=== PATIENT | female | born 1995 | race Two or more races ===

== ENCOUNTER → 2024-01-05 | Day surgery (SDC) | payer MEDICAID ==
[2024-01-03 14:43] LABS: Basophils # (auto) 0 10 ^3/uL (0-0.2); Basophils % (auto) 0.3 % (0.0-2.0); Eosinophils # (auto) 0.1 10 ^3/uL (0-0.8); Eosinophils % (auto) 0.9 % (0.0-7.0); Hematocrit 37.8 % (36.0-46.0); Hemoglobin 12.3 g/dL (12.2-16.2); Lymphocytes # (auto) 1.3 10 ^3/uL (0.4-5.4); Lymphocytes % (auto) 22.7 % (10.0-50.0); Mean Corpuscular Hemoglobin 27.9 pg (28.0-32.0); Mean Corpuscular Hgb Conc. 32.5 g/dL (32.0-36.0); Mean Corpuscular Volume 85.9 fL (80.0-100.0); Monocytes # (auto) 0.3 10 ^3/uL (0-1.3); Monocytes % (auto) 5.5 % (0.0-12.0); Neutrophils % (auto) 70.6 % (37.0-80.0); Nucleated Red Blood Cells % 0.1 %; Red Cell Distribution Width 13.9 % (11.8-14.3); White Blood Cell 5.7 10^3/uL (4.4-10.8)
[2024-01-03 14:58] LABS: Urine Bacteria FEW /hpf (None Seen); Urine Blood Negative /uL (Negative); Urine Clarity Turbid (Clear); Urine Color Yellow (Yellow); Urine Mucus FEW (None Seen); Urine Protein, UAD Negative (Negative); Urine Specific Gravity 1.017 (1.001-1.035); Urine Urobilinogen Normal (Negative); Urine WBC 6 /hpf (0 - 5); Urine pH 6.5 (5.0-9.0)
[2024-01-03 15:12] LABS: Alanine Aminotransferase 11 U/L (7-40); Albumin 4.2 g/dL (3.2-4.8); Alkaline Phosphatase 62 U/L (46-116); Anion Gap 5 (5-15); Aspartate Aminotransferase 8 U/L (13-40); Bilirubin, Total 0.7 mg/dL (0.2-1.0); Calcium 9.2 mg/dL (8.7-10.4); Carbon Dioxide 26 mmol/L (20-30); Chloride 107 mmol/L (98-107); Glucose 240 mg/dL (74-106); Potassium 4.6 mmol/L (3.5-5.1); Sodium 138 mmol/L (136-145); Total Protein 6.9 g/dL (5.7-8.2)
[2024-01-03 15:14] LABS: BUN/Creatinine Ratio 7.5 (10.0-20.0); Blood Urea Nitrogen < 5 mg/dL (9-23)
[2024-01-03 15:22] LABS: INR 1.04 (0.9-1.15); Partial Thromboplastin Time 27.8 SEC (24.5-34.5)
[~2024-01-05] VITALS: Ht 167.6 cm; Wt 74.8 kg
[~2024-01-05] MED LIST: CABE0.5T PO; CLON-1003 PO; DESV1TAB15 PO; DIVA250T12 PO; FAMO20TA10 PO; KETAMINE 50mg/ML 1ml syringe ONE; LAMO100T44 PO; LEVO150T10 PO; MIDAZOLAM HCL 2MG/2ML 2ml VIAL (1mg/ml) ONE; ONDA-155 PO; ONDANSETRON HCL 4 MG/2 ML VIAL ONE; PROPOFOL 10 MG/ML 20 ML IV ONE; SODIUM CHLORIDE LOCK 10 ML ONE; VENL1TAB99 PO; fentaNYL CITRATE 100 MCG/2 ML VL ONE
[2024-01-05 08:46] VITALS: PULSE 98; RESP 7; TEMP 98.9; O2SAT 100
[2024-01-05 09:15] VITALS: BP 114/66; PULSE 82; RESP 11; O2SAT 98
== END | disposition home or self-care (01) ==
LOC: GI 06:55
PROVIDERS: ATTEND Internal Medicine Gastroenterology
DX: R11.2 Nausea with vomiting, unspecified (principal); K29.80 Duodenitis without bleeding; K29.50 Unspecified chronic gastritis without bleeding; F31.9 Bipolar disorder, unspecified; F11.90 Opioid use, unspecified, uncomplicated; E10.9 Type 1 diabetes mellitus without complications; E03.9 Hypothyroidism, unspecified; F41.9 Anxiety disorder, unspecified; Z82.49 Family history of ischemic heart disease and other diseases of the circulatory system; Z83.3 Family history of diabetes mellitus; Z79.899 Other long term (current) drug therapy; Z98.890 Other specified postprocedural states; Z90.89 Acquired absence of other organs; Z88.0 Allergy status to penicillin; Z79.890 Hormone replacement therapy
CPT/HCPCS: 36415; 43239; 80053; 81001; 82962; 84702; 85025; 85610; 85730; 88305; 88312; 88342; J2250; J2405; J2704; J3010; J7030